=== PATIENT | female | born 2000 | race Hispanic/Latino ===

== ENCOUNTER 2023-01-07 01:28 | Emergency (ER) | payer SELFPAY ==
--- NOTE | 2023-01-07 02:13 | ER ---
Nurse's Notes [facility] Name: Agueda Barrett Age: 22 yrs Sex: Female : 2000 Arrival Date: 01/07/2023 Time: 01:32 Bed 18 Private MD: Diagnosis: Other ectopic without intrauterine ;Right ovarian , ectopic , free fluid in the pelvis Presentation: 01/07 01:41 Chief complaint: Spouse and/or significant other states: she is having abdominal pain. as6 it started yesterday. Coronavirus screen: At this time, the client does not indicate any symptoms associated with coronavirus-19. Ebola Screen: No symptoms or risks identified at this time. 01:41 Method Of Arrival: Ambulatory as6 01:48 Chief complaint:. Initial Sepsis Screen: Does the patient meet any 2 criteria? No. as6 Patient's initial sepsis screen is negative. Does the patient have a suspected source of infection? No. Patient's initial sepsis screen is negative. Risk Assessment: Do you want to hurt yourself or someone else? Patient reports no desire to harm self or others. Onset of symptoms was January 07, 2023. 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 - Social history:: Smoking status: Patient denies any tobacco usage or history of. - Family history:: not pertinent. Screenin:59 [facility] ED Fall Risk Assessment (Adult) Score/Fall Risk Level 0 - 2 = Low Risk. Abuse as6 screen: Denies threats or abuse. Denies injuries from another. Nutritional screening: No deficits noted. Tuberculosis screening: No symptoms or risk factors identified. Assessment: 01:58 General: Appears uncomfortable, Behavior is cooperative, crying. Pain: Complains of as6 pain in right lower quadrant. Respiratory: Respiratory effort is even, unlabored. GI: Abdomen is tender to palpation in right lower quadrant Abdomen has rebound tenderness in right lower quadrant Reports lower abdominal pain. 04:45 Reassessment: AT BEDSIDE USING LANGUAGE LINE TO EXPLAIN DX TO PT AND NEED FOR jj7 TRANSFER. PT VERBALIZES UNDERSTANDING. Vital Signs: 01:41 BP 109 / 55; Pulse 88; Resp 18 S; Temp 98.3(O); Pulse Ox 100% on R/A; Weight 68.04 kg as6 (R); 01:48 Pain 10/10; as6 02:45 BP 108 / 60; Pulse 78; Resp 17; Pulse Ox 100% ; jj7 03:39 BP 92 / 55; Pulse 74; Resp 19; Pulse Ox 100% ; Pain 0/10; jj7 04:57 BP 99 / 68; Pulse 101; Resp 20; Pulse Ox 100% ; Pain 0/10; jj7 01:48 Pain Scale: Adult as6 03:39 Pain Scale: Adult jj7 04:57 Pain Scale: Adult jj7 ED Course: 01:32 Patient arrived in ED. ja2 01:41 Arm band placed on. as6 01:48 Keshav Watson MD is Attending Physician. sp4 01:50 Triage completed. as6 02:09 Simeon Jay, CHUCHO is Primary Nurse. jj7 02:12 Julio C Evans MD is Hospitalizing Provider. sp4 02:37 Inserted saline lock: 20 gauge in right antecubital area, using aseptic technique. jj7 Blood collected. 02:47 CBC with Diff Sent. jj7 02:47 CMP Sent. jj7 02:47 Lipase Sent. jj7 03:02 Urinalysis W/Microscopic Sent. jj7 03:42 Transvaginal Study Probe In Process Unspecified. EDMS Administered Medications: 02:38 Drug: Ketorolac IVP 30 mg Route: IVP; Site: right antecubital; jj7 02:38 Drug: NS 0.9% IV 1000 ml Route: IV; Rate: 1 bolus; Site: right antecubital; jj7 02:38 Drug: Ondansetron IVP 4 mg Route: IVP; Site: right antecubital; jj7 03:02 Drug: morphine IVP or IV 4 mg Route: IVP; Infused Over: 4 mins; Site: right antecubital;jj7 Medication: 01:59 VIS not applicable for this client. as6 Outcome: 02:13 Decision to Hospitalize by Provider. sp4 05:01 ER care complete, transfer ordered by . sp4 Signatures: Dispatcher [employer] EDShavon Naranjo Ashby, RN RN as6 Simeon Jay RN RN jj7 Keshav Watson MD MD sp4 Renea Villaseñor [facility] Corrections: (The following items were deleted from the chart) 03:50 03:37 URINE --ANCILLARY+UC.LAB.BRZ drawn and sent. [facility] EDWA
--- NOTE | 2023-01-07 02:13 | EDPHYS ---
Physician Documentation [facility] Name: Agueda Barrett Age: 22 yrs Sex: Female : 2000 Arrival Date: 01/07/2023 Time: 01:32 Bed 18 Private MD: ED Physician Keshav Watson HPI: 01/07 01:49 This 22 yrs old Female presents to ER via Ambulatory with complaints of sp4 Abdominal Pain. 03:35 22-year-old female with no significant past medical history presents with right lower sp4 quadrant abdominal pain starting 2 days ago and gradually worsening. Patient states her last menstrual period was 12/20/2022. Patient is not sure if she is or not. Patient has no prior history of and no history of abdominal surgery. . 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 - Social history:: Smoking status: Patient denies any tobacco usage or history of. - Family history:: not pertinent. ROS: 03:35 Constitutional: Negative for fever, chills, and weight loss, Eyes: Negative for injury, sp4 pain, redness, and discharge, ENT: Negative for injury, pain, and discharge, Neck: Negative for injury, pain, and swelling, Cardiovascular: Negative for chest pain, palpitations, and edema, Respiratory: Negative for shortness of breath, cough, wheezing, and pleuritic chest pain, Abdomen/GI: Negative for nausea, vomiting, diarrhea, and constipation, positive for right lower quadrant abdominal pain Back: Negative for injury and pain, : Negative for injury, bleeding, discharge, and swelling, MS/Extremity: Negative for injury and deformity, Skin: Negative for injury, rash, and discoloration, Neuro: Negative for headache, weakness, numbness, tingling, and seizure, Psych: Negative for depression, anxiety, suicide ideation, homicidal ideation, and hallucinations, Allergy/Immunology: Negative for hives, rash, and allergies, Endocrine: Negative for neck swelling, polydipsia, polyuria, polyphagia, and marked weight changes, Hematologic/Lymphatic: Negative for swollen nodes, abnormal bleeding, and unusual bruising. Exam: 03:35 Constitutional: This is a well developed, well nourished patient who is awake, alert, sp4 and in no acute distress. Head/Face: Normocephalic, atraumatic. Eyes: Pupils equal round and reactive to light, extra-ocular motions intact. Lids and lashes normal. Conjunctiva and sclera are non-icteric and not injected. Cornea within normal limits. Periorbital areas with no swelling, redness, or edema. ENT: Nares patent. No nasal discharge, no septal abnormalities noted. Tympanic membranes are normal and external auditory canals are clear. Oropharynx with no redness, swelling, or masses, exudates, or evidence of obstruction, uvula midline. Mucous membranes moist. Neck: Trachea midline, no thyromegaly or masses palpated, and no cervical lymphadenopathy. Supple, full range of motion without nuchal rigidity, or vertebral point tenderness. No Meningismus. Chest/axilla: Normal chest wall appearance and motion. Nontender with no deformity. No lesions are appreciated. Cardiovascular: Regular rate and rhythm with a normal S1 and S2. No gallops, murmurs, or rubs. Normal PMI, no JVD. No pulse deficits. Respiratory: Lungs have equal breath sounds bilaterally, clear to auscultation and percussion. No rales, rhonchi or wheezes noted. No increased work of breathing, no retractions or nasal flaring. Abdomen/GI: Soft, with normal bowel sounds. No distension or tympany. Positive for right lower quadrant tenderness and positive rebound, positive voluntary guarding, positive peritoneal sign Back: No spinal tenderness. No costovertebral tenderness. Full range of motion. Skin: Warm, dry with normal turgor. Normal color with no rashes, no lesions, and no evidence of cellulitis. MS/ Extremity: Pulses equal, no cyanosis. Neurovascular intact. Full, normal range of motion. Neuro: Awake and alert, GCS 15, oriented to person, place, time, and situation. Cranial nerves II-XII grossly intact. Motor strength 5/5 in all extremities. Sensory grossly intact. Cerebellar exam normal. Normal gait. Psych: Awake, alert, with orientation to person, place and time. Behavior, mood, and affect are within normal limits. Vital Signs: 01:41 BP 109 / 55; Pulse 88; Resp 18 S; Temp 98.3(O); Pulse Ox 100% on R/A; Weight 68.04 kg as6 (R); 01:48 Pain 10/10; as6 02:45 BP 108 / 60; Pulse 78; Resp 17; Pulse Ox 100% ; jj7 03:39 BP 92 / 55; Pulse 74; Resp 19; Pulse Ox 100% ; Pain 0/10; jj7 04:57 BP 99 / 68; Pulse 101; Resp 20; Pulse Ox 100% ; Pain 0/10; jj7 01:48 Pain Scale: Adult as6 03:39 Pain Scale: Adult jj7 04:57 Pain Scale: Adult jj7 MDM: 01:52 Patient medically screened. sp4 03:55 Differential Diagnosis Ectopic , ovarian torsion, acute appendicitis, sp4 associated complication. Data reviewed: vital signs, nurses notes, lab test result(s), CBC, drug level(s), electrolytes, hepatic panel, urinalysis, UPT: radiologic studies, ultrasound. ED course: Patient's test is positive but ultrasound did not visualize gestational sac, possible right ovarian torsion, may also be possible early ectopic on the right side. 04:57 ED course: Ultrasound revealed free fluid predominantly in the right adnexa with sp4 adjacent complex structures which may represent bowel, prominent fallopian tube, ectopic , or other abdominal process such as appendicitis. Right ovarian torsion is less likely possibility given normal ovarian size and vascularity, endometrial thickening may be due to menstrual cycle or decidual reaction, recommend correlation with beta hCG and CT if clinically indicated. Based on this findings and a test being positive patient likely has acute right ectopic with adjacent free fluid that may indicate bleeding. Patient's vital signs are stable at this time patient warrants emergent transfer for management of ectopic .. 01/07 02:05 Order name: IV Saline Lock; Complete Time: 02:47 as6 01/07 02:05 Order name: Labs collected and sent; Complete Time: 02:47 as6 01/07 01:49 Order name: Urine Test (obtain specimen); Complete Time: 03:02 sp4 01/07 02:05 Order name: CBC with Diff; Complete Time: 03:33 as6 01/07 01:49 Order name: Urinalysis W/Microscopic; Complete Time: 03:33 sp4 01/07 02:07 Order name: COVID-19/FLU A+B; Complete Time: 03:53 sp4 01/07 03:37 Order name: Urine --Ancillary (enter results); Complete Time: 03:53 lg3 01/07 03:02 Order name: Urine Dipstick-Ancillary; Complete Time: 03:33 EDMS 01/07 03:42 Order name: Transvaginal Study Probe EDMS 01/07 02:05 Order name: CMP; Complete Time: 05:01 as6 01/07 04:05 Order name: HCG, Quantitative; Complete Time: 05:01 EDMS 01/07 02:05 Order name: Lipase; Complete Time: 05:01 as6 Administered Medications: 02:38 Drug: Ketorolac IVP 30 mg Route: IVP; Site: right antecubital; jj7 02:38 Drug: NS 0.9% IV 1000 ml Route: IV; Rate: 1 bolus; Site: right antecubital; jj7 02:38 Drug: Ondansetron IVP 4 mg Route: IVP; Site: right antecubital; jj7 03:02 Drug: morphine IVP or IV 4 mg Route: IVP; Infused Over: 4 mins; Site: right antecubital;jj7 Disposition Summary: 01/07/23 05:01 Transfer Ordered Accepting Physician: ANIMAL CARE TECHNICIAN sp4 Transfer Location: Other Acute Care Facility sp4 Reason: Higher level of care sp4 Condition: Stable(01/07/23 05:01) sp4 Problem: new(01/07/23 05:01) sp4 Symptoms: are unchanged(01/07/23 05:01) sp4 Diagnosis - Other ectopic without intrauterine sp4 - Right ovarian , ectopic , free fluid in the pelvis sp4 Forms: - Medication Reconciliation Form sp4 - SBAR form sp4 Signatures: Dispatcher [employer] Yash Weber RN RN as6 Simeon Jay RN RN jj7 Keshav Watson MD MD sp4 Corrections: (The following items were deleted from the chart) 02:30 02:13 Observation sp4 as6 02:30 02:13 CristinaJulio C sp4 as6 02:30 02:13 Telemetry/MedSurg (observation) sp4 as6 02:30 02:13 Stable sp4 as6 02:30 02:13 new sp4 as6 02:30 02:13 are unchanged sp4 as6 02:30 02:13 Standard sp4 as6 02:30 02:13 sp4 as6 02:30 02:13 Paralytic ileus sp4 as6 02:30 02:13 Partial small bowel obstruction, intractable nausea vomiting, intractable as6 abdominal pain sp4 03:01 02:09 Abdomen Pelvis W Con+CT.RAD.BRZ ordered. EDMS EDMS 03:42 02:59 OB Complete+US.RAD.BRZ ordered. EDMS EDMS 03:50 03:02 URINE --ANCILLARY+UC.LAB.BRZ ordered. EDMS EDMS 04:04 03:57 QUANTITATIVE HCG+C.LAB.BRZ ordered. EDMS EDMS
[2023-01-07] MEDS ORDERED: ONDANSETRON 4 MG/2 ML VIAL ONE (02:37)
[2023-01-07] MEDS ORDERED: KETOROLAC 30 MG/ML INJ ONE (02:37)
[2023-01-07] MEDS ORDERED: MORPHINE 4 MG/ML SYR ONE (02:37)
[2023-01-07] MEDS ORDERED: NA CHLORIDE 0.9% 1,000 ML ONE (02:37)
[2023-01-07 03:01] LABS: Urine Blood Negative (Negative); Urine Glucose Negative (Negative); Urine Protein Negative (Negative); Urine Specific Gravity >=1.030 (1.005-1.030)
[2023-01-07 03:09] LABS: Absolute Lymphocytes (CBC) 1.2 K/uL (0.7-4.9); Hematocrit 37.8 % (36.0-45.0); Lymphocytes % 9.3 % (15.3-44.8); MCV 88.1 fL (80-100); MPV 8.9 fL (7.6-11.3); RBC Red Blood Cell Count 4.29 M/uL (3.86-4.86)
[2023-01-07 03:16] LABS: Specific Gravity 1.014 (1.005-1.030); Urine Bacteria None Seen /HPF (<20); Urine Bilirubin NEGATIVE (Negative); Urine Blood Negative (Negative); Urine Clarity Clear (Clear); Urine Color Colorless (Yellow); Urine Glucose NEGATIVE (Negative); Urine Mucus Slight /HPF (None Seen); Urine Protein NEGATIVE (Negative); Urine RBC <5 /HPF (None Seen); Urine Urobilinogen Normal (Normal)
[2023-01-07 03:20] LABS: Albumin 4.1 g/dL (3.4-5.0); Bilirubin Total 0.3 mg/dL (0.2-1.0); Potassium 3.8 mmol/L (3.5-5.1); Protein, Total 7.5 g/dL (6.4-8.2)
[2023-01-07 03:48] LABS: Urine Specific Gravity/Preg >1.030 (1.005-1.030)
[2023-01-07 03:50] LABS: SARS-COV-2 RT PCR NEGATIVE (NEGATIVE)
--- NOTE | 2023-01-08 10:25 | RAD REPORT ---
EXAM DESCRIPTION: US - Transvaginal Study Probe - 01/07/2023 3:40 am COMPARISON: None. CLINICAL HISTORY: [facility] MAIN ABD PAIN TECHNIQUE: Transvaginal sonographic images of the pelvis were obtained. Color Doppler was also uti lized. FINDINGS: Uterus: The uterus measures 7.7 x 4.9 x 5.7 cm and is in a retroverted position. Endometri al thickness is 26 mm. Right Adnexa: The right ovary measures 3.8 x 2.8 x 2.7 cm and is normal. Normal vascularity. Adjacent free fluid and complex structures are present. Left Adnexa: The left ovary measures 4.0 x 1.8 x 2.4 cm and is normal. Normal vascularity. Peritoneal cavity: Moderate free fluid is seen in the right adnexa with adjacent complex structures. IMPRESSION: Free fluid is predominantly in the right adnexa with adjacent complex structures which m ay represent bowel, prominent fallopian tubes, ectopic , or other abdominal process such as appendicitis. Right ovarian torsion is a less likely possibility given normal ovarian size and vascul arity. Endometrial thickening may be due to menstrual cycle or decidual reaction. Recommend correlati on with beta-hCG and CT if clinically indicated. Electronically signed by: Kervin Montelongo MD 01/07/2023 4:09 AM CDT . Due to temporary technical issues with the PACS/Fluency reporting system, reports are being signed by the in house radiologists without review as a courtesy to insure prompt reporting. The interpreting radiologist is fully responsible for the content of the report.
== END 2023-01-07 06:48 ==
LOC: ER 01:28
DX: O00.80 Other ectopic pregnancy without intrauterine pregnancy (principal)
CPT/HCPCS: 0240U; 36415; 76830; 80053; 81001; 81003; 81025; 83690; 84702; 85025; J2405; J7030